=== PATIENT | female | born 1955 | race Two or more races ===

== ENCOUNTER → 2016-09-04 | Outpatient (CLI) | payer BC ==
[2014-08-06 13:30] VITALS: BP 141/79
[~2016-09-04] MED LIST: ASCO500C PO; CYAN10005 PO; MULT-651 PO; OMEG1CAP6 PO; OXYC-323 PO
--- NOTE | 2016-09-05 10:53 | RAD ---
DATE: 09/04/2016 EXAM: DIGITAL SCREEN BILAT W/CAD HISTORY: Routine screening COMPARISON: 08/18/2015, 09/01/2015 This study was interpreted with the benefit of Computerized Aided Detection (CAD). The breast parenchyma is heterogeneously dense, which could reduce sensitivity of mammography. Breast parenchyma level C. FINDINGS: No new or enlarging breast densities are seen. Benign type calcifications are noted. No suspicious microcalcifications have developed. IMPRESSION: Stable mammograms without evidence of malignancy. BI-RADS CATEGORY: 2 BENIGN FINDING(S) RECOMMENDED FOLLOW-UP: 12M 12 MONTH FOLLOW-UP PQRS compliance statement: Patient information was entered into a reminder system with a target due date for the next mammogram. Mammography is a sensitive method for finding small breast cancers, but it does not detect them all and is not a substitute for careful clinical examination. A negative mammogram does not negate a clinically suspicious finding and should not result in delay in biopsying a clinically suspicious abnormality. "Our facility is accredited by the [employer] Mammography Program."
== END | disposition home or self-care (01) ==
LOC: MAMMO 12:54
PROVIDERS: ATTEND Physician Assistant Medical
DX: Z12.31 Encounter for screening mammogram for malignant neoplasm of breast (principal)
CPT/HCPCS: G0202; 77067

== ENCOUNTER → 2019-03-18 | Day surgery (SDC) | payer BC, MEDICARE ==
[~2019-03-18] MED LIST changes: +ACETAMINOPHEN 325 MG TABLET PO PRN; +ALBUTEROL SULFATE 2.5 MG/3 ML NEBU. NEB PRN; +ATROPINE 0.5 MG/5 ML DISP.SYRIN. IV PRN; +BALANCED SALT IRRIG OPHTH SOLN 15 ML BOTTLE. IRR ONE; +CATARACT OPHTH GEL 0.5 ML SYRINGE. OS ONE; +CHONDROIT-SOD-HYALURONATE KIT. OS ONE; +CYAN-25 PO; -CYAN10005 PO; +EPINEPHrine AMPULE 0.5 MG in BALANCED SALT IRRIG SOLN PLUS 500 ML IO ONE; +ERYTHROMYCIN 0.5% OPHTH OINTMENT 1GM TUBE. OS ONE; +HYALURONIDASE 75UNITS in LIDOCAINE 2% PF OPHTH 10 ML SYRINGE. OS ONE; +KETOROLAC TROMETHAMINE 0.5% OPHTH SOLUTION BOTTLE. ONE; +MIDAZOLAM HCL PF 2 MG/2 ML VIAL. IV PRN; +MOXIFLOXACIN 0.5% OPHTH SOLUTION 3ML BOTTLE. OS SCH; +ONDANSETRON PF 4 MG/2 ML VIAL. IV PRN; -OXYC-323 PO; +OXYC1TAB15 PO; +POVIDONE-IODINE 5% OPHTH SOLUTION 30ML BOTTLE. OS ONE; +PROPOFOL 20 ML IV ONE; +TETRACAINE 0.5% OPHTH SOLUTION 4ML BOTTLE. OS ONE; +TETRACAINE 0.5% OPHTH SOLUTION 4ML BOTTLE. OU ONE; +diphenhydrAMINE 50 MG/ML VIAL IV PRN; +prednisoLONE ACETATE 1% OPHTH SUSPENSION 5ML BOTTLE. ONE
[2019-03-18] MEDS: MOXIFLOXACIN 0.5% OPHTH SOLUTION 3ML BOTTLE. OS SCH ×3 (06:47→06:58)
[2019-03-18] MEDS: prednisoLONE ACETATE 1% OPHTH SUSPENSION 5ML BOTTLE. OS SCH ×2 (08:35→08:36)
[2019-03-18] MEDS: KETOROLAC TROMETHAMINE 0.5% OPHTH SOLUTION BOTTLE. OS SCH ×2 (08:35→08:36)
--- NOTE | 2019-03-18 08:37 | PDOC4 ---
CATARACT Operative Report DATE DATE: 03/18/19 TIME: 08:37 Operation Performed Operative Report Name: Raul Rivera Operation Date: @TD@ Preoperative Diagnosis: 1. Senile cataract, LEFT: eye Postoperative Diagnosis: 1. Senile cataract, LEFT: eye. Operation: 1. Phacoemulsification with posterior chamber intraocular lens implant. Surgeon: Mary Alice Crane D.O. Anesthesia: Local with monitored anesthesia care. Description of Operation: With cardiac monitoring and intravenous sedation, the patient received peribulbar anesthesia in the holding area. Pressure was ap plied to the eye with a [place] balloon for approximately 10 minutes. The patient was taken to the operating room and placed in a supine position. The periorbital region was prepped and draped in the usual sterile fashion. A lid speculum was placed between the eyelids. The patient was positioned under the microscope. A temporal clear corneal incision was made with a keratome. Viscoelastic was then injected into the eye. A side port incision was made three clock hours to the left of the clear corneal incision. A cystotome and capsular forceps were used to make a continuous tear capsulorhexus. Hydrodissection was performed with balanced salt solution. The phacoemulsification needle was placed into the eye and the cataract was removed. The remaining cortical material was removed with irrigation and aspiration. The posterior capsule was noted to be clean and intact. Viscoelastic was again injected into the eye, inflating the posterior capsular bag. A foldable intraocular lens was then injected into the eye, unfolding as desired, and positioned in the capsular bag. The viscoelastic was aspirated from the eye. The wound edges were hydrated with balanced salt solution. There were no wound leaks. Viscoelastic was injected over the side port and clear corneal incisions. One drop of Vigamox and one drop of prednisolone acetate were instilled into the eye. The lid speculum was removed and a pressure dressing with a Singh shield was placed over the eye. The patient was taken to the recovery room in good condition. CARROLL CRANE DO Mar 18, 2019 08:37
[2019-03-18 08:45] VITALS: BP 139/80
== END | disposition home or self-care (01) ==
LOC: SURG 06:09
PROVIDERS: ATTEND Ophthalmology
DX: H25.12 Age-related nuclear cataract, left eye (principal); Z90.49 Acquired absence of other specified parts of digestive tract
CPT/HCPCS: 66984; J0171; J2704; V2632

== ENCOUNTER → 2019-04-08 | Day surgery (SDC) | payer MEDICARE ==
[~2019-04-08] MED LIST changes: +ALEN70TA3 PO; +CATARACT OPHTH GEL 0.5 ML SYRINGE. OD ONE; -CATARACT OPHTH GEL 0.5 ML SYRINGE. OS ONE; +CHONDROIT-SOD-HYALURONATE KIT. OD ONE; -CHONDROIT-SOD-HYALURONATE KIT. OS ONE; +ERYTHROMYCIN 0.5% OPHTH OINTMENT 1GM TUBE. OD ONE; -ERYTHROMYCIN 0.5% OPHTH OINTMENT 1GM TUBE. OS ONE; +HYALURONIDASE 75UNITS in LIDOCAINE 2% PF OPHTH 10 ML SYRINGE. OD ONE; -HYALURONIDASE 75UNITS in LIDOCAINE 2% PF OPHTH 10 ML SYRINGE. OS ONE; +KETOROLAC TROMETHAMINE 0.5% OPHTH SOLUTION BOTTLE. OD SCH; -MIDAZOLAM HCL PF 2 MG/2 ML VIAL. IV PRN; +MOXIFLOXACIN 0.5% OPHTH SOLUTION 3ML BOTTLE. OD SCH; -MOXIFLOXACIN 0.5% OPHTH SOLUTION 3ML BOTTLE. OS SCH; +PHENOL ORAL SPRAY 177ML BOTTLE. MM PRN; +POVIDONE-IODINE 5% OPHTH SOLUTION 30ML BOTTLE. OD ONE; -POVIDONE-IODINE 5% OPHTH SOLUTION 30ML BOTTLE. OS ONE; +TETRACAINE 0.5% OPHTH SOLUTION 4ML BOTTLE. OD ONE; -TETRACAINE 0.5% OPHTH SOLUTION 4ML BOTTLE. OS ONE; +prednisoLONE ACETATE 1% OPHTH SUSPENSION 5ML BOTTLE. OD SCH
[2019-04-08] MEDS: MOXIFLOXACIN 0.5% OPHTH SOLUTION 3ML BOTTLE. OD SCH ×3 (09:11→09:23)
--- NOTE | 2019-04-08 10:05 | PDOC4 ---
Rt Cataract/Floppy Iris Syn. Date of Procedure: Apr 08, 2019 Preoperative Diagnosis: 1. Senile Cataract, Right Eye 2. Anticipated Intraoperative Floppy Iris Syndrome Postoperative Diagnosis: 1. Senile Cataract, Right Eye 2. Intraoperative Floppy Iris Syndrome Anesthesia: Local (Block) with monitored anesthesia care Surgeon: Carroll Crane D.O. Procedure: Procdeure: Right Phacoemulsification with intraocular lens implant Findings: Senile Cataract Intraoperative Floppy Iris Syndrome Indications: Worsening vision interfering with patient's lifestyle Narrative: After discussing the risks, complications and alternatives, including but not limited to loss of vision, infection, bleeding, swelling, anesthetic reaction, capsule rupture with vitreous loss, etc., the patient was given a peribulbar block under mild IV sedation and cardiac monitoring. Pressure was applied to the eye for approximately 10 minutes. The patient was transferred to the main operating room and was prepped and draped in the usual sterile fashion and positioned under the microscope. A lid speculum was placed. A temporal clear corneal incision was made with a keratome and epi-Shugarcaine was injected into the anterior chamber, this was followed by injecting viscoelastic. A side port incision was made. A continuous tear capsulorrhexis was was performed, then hydrodissection was accomplished with balanced salt solution. The phacoemu lsification needle was placed in the eye and the nucleus was emulsified. The remaining cortical material was removed with the irrigation and aspiration apparatus. The capsule was polished as needed. The posterior capsule was noted to be clean and intact. Viscoelastic was injected into the eye inflating the capsular bag. An intraocular lens was injected into the eye, unfolding as desired and was positioned in the capsular bag. The viscoelastic was aspirated from the eye. The wound edges were hydrated with balanced salt solution and there were no leaks. Viscoelastic was injected over the limbal incisions. Antibiotic and steroid were placed on the eye. The lid speculum was removed, the eye patched shut and a Singh shield applied. There were no complications and the patient was taken to the PACU in good condition. CARROLL CRANE DO Apr 08, 2019 10:04
[2019-04-08 10:15] VITALS: BP 166/84
== END ==
LOC: SURG 08:08
PROVIDERS: ATTEND Ophthalmology
DX: H25.11 Age-related nuclear cataract, right eye (principal); H21.81 Floppy iris syndrome; Z90.10 Acquired absence of unspecified breast and nipple; Z87.39 Personal history of other diseases of the musculoskeletal system and connective tissue
CPT/HCPCS: 66984; J0171; J2704; V2632